=== PATIENT | male | born 1975 | race Caucasian/White ===

== ENCOUNTER → 2017-01-02 | Outpatient (CLI) | payer BC ==
[2017-01-02 10:32] LABS: Basophils # (A) 0.1 k/uL (0-0.2); Basophils % (A) 1 %; CHCM 34.9; Eosinophils # (A) 0.4 k/uL (0-0.7); Eosinophils % (A) 5 %; HCT 48.6 % (39.0-53.0); HDW 2.66; HGB 16.2 gm/dL (13.0-17.5); Luc # (Auto) 0.19; Luc % (Auto) 3; Lymphocytes % (A) 27 %; MCH 30.8 pg (25.0-35.0); MCHC 33.4 g/dL (31.0-37.0); MCV 92.3 fL (80.0-100.0); Mean Platelet Volume 6.7; Monocytes # (A) 0.4 k/uL (0-1.0); Monocytes % (A) 5 %; Neutrophils # (A) 4.4 k/uL (1.3-7.7); Neutrophils % (A) 60 %; RBC 5.27 m/uL (4.30-5.90); RDW 12.9 % (11.5-15.5); WBC 7.4 k/uL (3.8-10.6)
[2017-01-02 10:58] LABS: ALT 31 U/L (21-72); AST 20 U/L (17-59); Alkaline Phosphatase 25 U/L (38-126); Anion Gap 9 mmol/L; Blood Urea Nitrogen 19 mg/dL (9-20); C Reactive Protein 10.5 mg/L (<10.0); Calcium 9.6 mg/dL (8.4-10.2); Carbon Dioxide 24 mmol/L (22-30); Chloride 108 mmol/L (98-107); Cholesterol 225 mg/dL (<200); Glucose 91 mg/dL (74-99); HDL Cholesterol 33 mg/dL (40-60); Non-African American GFR(MDRD) >60 (>60 ml/min/1.73 sqM); Rheumatoid Factor, Qnt <9 IU/mL (<12); Sodium 141 mmol/L (137-145); Total Bilirubin 0.4 mg/dL (0.2-1.3); Total Protein 7.1 g/dL (6.3-8.2); Triglycerides 166 mg/dL (<150)
[2017-01-02 11:37] LABS: Erythrocyte Sedimentation Rate 5 mm/hr (0-15)
[2017-01-04 12:35] LABS: ANA w/Reflex to Titer NEGATIVE (NEGATIVE)
== END | disposition home or self-care (01) ==
LOC: LABWHC1 09:49
PROVIDERS: ATTEND Family Medicine
DX: Z00.00 Encounter for general adult medical examination without abnormal findings (principal); M25.50 Pain in unspecified joint; K29.70 Gastritis, unspecified, without bleeding; R53.83 Other fatigue
CPT/HCPCS: 36415; 80053; 80061; 82040; 84270; 84403; 84443; 85025; 85652; 86038; 86140; 86225; 86431; 86677

== ENCOUNTER 2017-01-11 07:59 | Day surgery (SDC) | payer BC ==
[2017-01-07 16:00] VITALS: BMI 29.3
[~2017-01-11 07:59] MED LIST: DEXAMETHASONE SOD PHOSPHATE 10 MG/ML 1 ML VIAL IV ONE; HEPARIN SODIUM,PORCINE 5,000 UNIT/ML 1 ML VIAL SQ ONE; ONDANSETRON 4 MG/2 ML VIAL IVP ONE; SCOPOLAMINE 1.5MG/72HR PATCH TRANSDERM ONE; ceFAZolin 2 GM in SODIUM CHLORIDE 0.9% 100 ML IVPB ONE
[2017-01-11] MEDS: LIDOCAINE 1% 20 ML VIAL (10MG/ML) FOR IV START INTRADERMA PRN ×2 (08:25→08:34)
[2017-01-11] MEDS: LACTATED RINGERS 1,000 ML IV SCH ×2 (08:30→08:31)
[2017-01-11] MEDS ORDERED: ROCURONIUM BROMIDE 10 MG/ML 10 ML VIAL IV ONE (10:09)
[2017-01-11] MEDS ORDERED: SUCCINYLCHOLINE CHLORIDE 100 MG/5 ML SYR IV ONE (10:09)
[2017-01-11] MEDS ORDERED: HYDROmorphone (PF) 1 MG/ML ONE (10:09)
[2017-01-11] MEDS ORDERED: GLYCOPYRROLATE 0.2 MG/ML 2 ML VIAL ONE (10:09)
[2017-01-11] MEDS ORDERED: LIDOCAINE 1% INJ 10MG/ML (20 ML MDV) ONE (10:09)
[2017-01-11] MEDS ORDERED: fentaNYL (PF) 50 MCG/ML 2 ML AMP ONE (10:09)
[2017-01-11] MEDS ORDERED: NEOSTIGMINE 1 MG/ML 10 ML VIAL ONE (10:09)
[2017-01-11] MEDS ORDERED: MIDAZOLAM 2 MG/2 ML VIAL ONE (10:09)
[2017-01-11] MEDS ORDERED: PROPOFOL 10 MG/ML 20 ML VIAL IV ONE (10:09)
[2017-01-11] MEDS ORDERED: BUPIVACAIN-EPI 0.25%-1:200,000 30 ML VIAL SQ ONE (10:39)
[2017-01-11] MEDS ORDERED: LACTATED RINGERS 1,000 ML IV ONE (12:01)
--- NOTE | 2017-01-11 12:17 | P.OP ---
Date of Procedure: 01/11/17 Preoperative Diagnosis: Bilateral inguinal hernia Postoperative Diagnosis: Bilateral direct inguinal hernia Procedure(s) Performed: Robot assisted laparoscoic b/l inguinal hernia repair with mesh Anesthesia: EDNA Surgeon: Karmen Fam Pathology: other Condition: stable Disposition: PACU Operative Findings: Direct bilateral inguinal hernias Description of Procedure: Informed consent was obtained patient and then The patient was brought to the operating room and placed in supine position. General anesthesia with endotracheal intubation was performed as per anesthesia team. A poole catheter was inserted under sterile aseptic precautions. Chlorhexidine was used to prep the skin followed by application of sterile drapes . He was placed in the lithotomy position. A timeout was performed to verify correct patient, correct procedure and correct side. Patient was confirmed to receive perioperative IV antibiotics, subcutaneous heparin 5000 units and bilateral SCDs were placed. The left upper quadrant point was identified and a stab incision was made. Veress needle was introduced and placement was confirmed with the help of the drop test. The abdomen was then insufflated to 15 mmHg. Once that was done 5 mm port was introduced into the left upper quadrant using the Optiview technique after which a 12 mm port was placed in the supraumbilical position and a 8 mm port in the right lower quadrant and then after that then a left sided 8 mm port was placed. The robot was then docked . The 30 degree up scope was introduced and the abdomen through the 12 mm port site. Cardiere grasper for the left hand and scissor in the right hand was introduced in the abdominal cavity after which the median umbilical fold was retracted laterally towards the opposite side a small incision was made at the junction of the umbilical fold and the peritoneum and carried all the way laterally thus creating a small plane in the preperitoneal space. This dissection was also carried across the midline othe opposite side creatin a large periotneal flap . Medially, the coopers ligament and pubic tubercles were identified. There was a direct hernia which was obscuring the Helio's ligament this was taken down with the help of blunt dissection inferior flap was developed so as to have a good view of the myopectineal orifice. The left side was inspected showing similar situation with fat forming a direct hernia and obscuring the Helio's ligament and running up to the anterior abdominal wall this was taken out with meticulous blunt dissection to create a good inferior flap for placement of the mesh. Once this was done a 10 x 15 Bard Pro bolt machine operator mesh meshes were sutured to the abdominal cavity and unrolled with midline overlap completely covering the hernia orifices. The large flap was then closed with the help of 20V lock suture. Small hole in it was closed with the help of 3-0 Vicryl. Small fetus of fat from the initial flap creation that had been taken down because it was in the way of the camera was removed along with the needles. Please note that the flap was close at a pressure of 8 mmHg insuring that the inferior edges of the meshes were not rolling up. At this time the procedure was completed. The robot was undocked. The 12 Mediport site was closed with the help of a Jasen Ibarra using 0 PDS. Sponge Count Was 4. The Remaining Ports Were Removed under Vision and Abdomen Desufflated. Patient She Will over a Competition. Patient Was Extubated without His Poole Catheter Was Removed and He Was Taken to Recovery Room in Stable Condition.
[2017-01-11 12:27] VITALS: TEMP 97.8
[2017-01-11] MEDS: HYDROmorphone 1 MG/ML 1 ML SYRINGE IVP PRN ×4 (12:30→13:04)
[2017-01-11 12:31] VITALS: RESP 18
[2017-01-11] MEDS ORDERED: traMADol 50 MG TAB PO ONE (14:31)
[2017-01-11 14:42] VITALS: BP 123/83; PULSE 64
== END 2017-01-11 15:10 | disposition home or self-care (01) ==
LOC: OR 07:59 → EDSTATUS 09:30 → OR 15:10
PROVIDERS: ATTEND Surgery
DX: K40.20 Bilateral inguinal hernia, without obstruction or gangrene, not specified as recurrent (principal); F17.290 Nicotine dependence, other tobacco product, uncomplicated; Z79.899 Other long term (current) drug therapy
CPT/HCPCS: 49650; S2900

== ENCOUNTER 2017-05-17 20:20 | Emergency (ER) | payer BC ==
[2017-05-17 20:27] VITALS: BP 142/91; RESP 18; TEMP 98.7
[2017-05-17] MEDS ORDERED: IPRATROPIUM-ALBUTEROL 3 ML NEB INHALATION STA (21:51)
[2017-05-17 22:08] VITALS: PULSE 83
--- NOTE | 2017-05-17 22:35 | ED ---
General Adult HPI - General Chief complaint: Shortness of Breath Stated complaint: SOB Time Seen by Provider: 05/17/17 21:35 Source: patient, family, RN notes reviewed Mode of arrival: ambulatory Limitations: no limitations - History of Present Illness Initial comments: 42-year-old male presenting for difficulty breathing. Patient has no known history of asthma. No past medical history. No chest pain. No calf tenderness. No risk factors for DVT. Breathing difficulty began approximately 4 PM. He hasn't denies fever. Patient does have history recent breakup with his girlfriend. He was how shopping for a new place to stay today. This began while he was out shopping. Patient does feel anxious. Does not take any medication. - Related Data Home Medications Medication Instructions Recorded Confirmed No Known Home Medications [No 05/17/17 05/17/17 Known Home Medications] Allergies Allergy/AdvReac Type Severity Reaction Status Date / Time No Known Allergies Allergy Verified 05/17/17 21:38 Review of Systems ROS Statement: Those systems with pertinent positive or pertinent negative responses have been documented in the HPI. ROS Other: All systems not noted in ROS Statement are negative. Past Medical History Additional Past Medical History / Comment(s): ketty inguinal hernia History of Any Multi-Drug Resistant Organisms: None Reported Past Surgical History: Hernia Repair Additional Past Surgical History / Comment(s): wisdom teeth,dental procedures Additional Past Anesthesia/Blood Transfusion Reaction / Comment(s): never has had general anesthesia,Jahovah Witness Past Psychological History: No Psychological Hx Reported Smoking Status: Current every day smoker Past Alcohol Use History: None Reported Past Drug Use History: Marijuana - Past Family History Mother Family Medical History: No Reported History Father History Unknown: Yes General Exam Limitations: no limitations General appearance: alert, anxious Head exam: Present: atraumatic, normocephalic Eye exam: Present: normal appearance, PERRL ENT exam: Present: normal exam, mucous membranes moist Neck exam: Present: normal inspection. Absent: tenderness, meningismus Respiratory exam: Present: normal lung sounds bilaterally, respiratory distress , other (Is between wheezing heard best over the trachea. This is consistent with forced inspiration. Lungs are clear bilaterally) Cardiovascular Exam: Present: regular rate, normal rhythm GI/Abdominal exam: Present: soft. Absent: distended, tenderness Rectal exam: Present: deferred Extremities exam: Present: normal inspection, full ROM. Absent: tenderness, calf tenderness Back exam: Present: normal inspection Neurological exam: Present: alert, oriented X3 Psychiatric exam: Present: anxious Skin exam: Present: warm, dry. Absent: cyanosis, diaphoretic Course Vital Signs 05/17/17 05/17/17 05/17/17 20:23 22:00 22:05 Temperature 98.7 F Pulse Rate 89 80 83 Respiratory 18 Rate Blood Pressure 142/91 O2 Sat by Pulse 99 Oximetry - Reevaluation(s) Reevaluation #1: 05/17/17 23:41 On reevaluation. Patient is feeling much better. Breathing difficulty has resolved. Medical Decision Making - Medical Decision Making Patient presents with difficulty breathing. Began suddenly at 4 PM on the patient was house shopping. He did have recent breakup with his girlfriend. No history of asthma, risk factors for DVT, no chest pain or concerning features. His pulmonary exam is clear, there is forced upper airway sounds. Patient does admit to being anxious. After a lengthy discussion patient's breathing has improved. He is given 1 DuoNeb while he rest in the emergency department I reevaluated the patient, no stridor, no wheezing, no respiratory distress. Patient does have a primary care physician he can follow up with. History and exam consistent with anxiety. Disposition Clinical Impression: Anxiety Disposition: HOME SELF-CARE Instructions: Acute Bronchitis (ED), Anxiety (ED) Referrals: None,Stated [Primary Care Provider] - 1-2 days Time of Disposition: 22:35
== END 2017-05-17 22:39 | disposition home or self-care (01) ==
LOC: EC 20:20
DX: F41.9 Anxiety disorder, unspecified (principal); F17.200 Nicotine dependence, unspecified, uncomplicated
CPT/HCPCS: 94640; 99283

== ENCOUNTER → 2017-11-03 | Outpatient (CLI) | payer BC ==
--- NOTE | 2017-11-03 16:45 | CT ---
EXAMINATION TYPE: CT abdomen pelvis w con DATE OF EXAM: 11/03/2017 COMPARISON: NONE HISTORY: Abnormal bowel habits for 2 to 3 days without bowel movement per patient. Abdominal pain not further specified per order CT DLP: 1342 mGycm, Automated Exposure Control for Dose Reduction was Utilized. CONTRAST: CT scan of the abdomen and pelvis is performed with oral and with IV Contrast, patient injected with 100 mL of Omnipaque 300. FINDINGS: LUNG BASES: No significant abnormality is appreciated. LIVER/GB: Contracted gallbladder is seen. PANCREAS: No significant abnormality is seen. SPLEEN: No significant abnormality is seen. ADRENALS: No significant abnormality is seen. KIDNEYS: No significant abnormality is seen. BOWEL: Oral contrast reaches level of splenic flexure. There is no suspicious small or large bowel di latation. Normal-appearing Contrast filled appendix extends inferiorly from cecum. There are few dive rticula in the left and sigmoid colon. There is no CT evidence for acute diverticulitis. No significa nt colonic fecal stasis. PROSTATE/SEMINAL VESICLES: Scattered pelvic phleboliths, left greater than right. LYMPH NODES: No greater than 1cm abdominal or pelvic lymph nodes are appreciated. OSSEOUS STRUCTURES: Incidental calcified disc T10-T11 level. OTHER: No significant additional abnormality is seen. IMPRESSION: No significant finding is seen to account for patient's clinical symptoms. No bowel obst ruction. No significant colonic fecal stasis.
== END | disposition home or self-care (01) ==
LOC: RADCTMAIN 16:11
PROVIDERS: ATTEND Family Medicine
DX: R10.9 Unspecified abdominal pain (principal)
CPT/HCPCS: 74177; Q9967

== ENCOUNTER 2017-12-16 02:59 | Emergency (ER) | payer BC ==
[2017-12-16 03:15] VITALS: RESP 18
[2017-12-16] MEDS ORDERED: SODIUM CHLORIDE 0.9% 1,000 ML IV STA (03:32)
[2017-12-16] MEDS ORDERED: ONDANSETRON 4 MG/2 ML VIAL IVP STA (03:32)
[2017-12-16] MEDS ORDERED: KETOROLAC 30 MG/ML 1 ML VIAL IVP STA (03:32)
[2017-12-16] MEDS ORDERED: MAG HYDROX/AL HYDROX/SIMETH 30 ML, HYOSCYAMINE ELIXIR 10 ML, CIMETIDINE HCL 300 MG, LID... PO STA ×4 (03:33)
--- NOTE | 2017-12-16 03:39 | ED ---
Abdominal Pain HPI - General Chief Complaint: Abdominal Pain Stated Complaint: Abd pain Time Seen by Provider: 12/16/17 03:24 Source: patient, RN notes reviewed Mode of arrival: ambulatory Limitations: no limitations - History of Present Illness Initial Comments: This is a 42-year-old male who presents to the emergency department with chief complaint of abdominal pain. Patient states that he has been experiencing on and off abdominal pain for the past couple of months. He states that he has underwent CT scans and scopes and they have been unable to figure out why he is experiencing this abdominal pain. Patient states that he experiences sharp pains along the upper portion of his abdomen with cramping centrally. He states that he is having nausea and vomiting. Denies constipation or diarrhea. Denies fevers or chills. Denies urinary symptoms such as dysuria or hematuria. - Related Data Previous Rx's Medication Instructions Recorded Omeprazole [PriLOSEC] 20 mg PO AC-BRKFST #14 cap 12/16/17 Allergies Allergy/AdvReac Type Severity Reaction Status Date / Time No Known Allergies Allergy Verified 12/16/17 03:15 Review of Systems ROS Statement: Those systems with pertinent positive or pertinent negative responses have been documented in the HPI. ROS Other: All systems not noted in ROS Statement are negative. Past Medical History Additional Past Medical History / Comment(s): ketty inguinal hernia, chronic abdominal pain; H pylori History of Any Multi-Drug Resistant Organisms: None Reported Past Surgical History: Hernia Repair Additional Past Surgical History / Comment(s): wisdom teeth,dental procedures, colonoscopy/endoscopy 2 weeks ago Additional Past Anesthesia/Blood Transfusion Reaction / Comment(s): never has had general anesthesia,Jahovah Witness Past Psychological History: No Psychological Hx Reported Smoking Status: Current every day smoker Past Alcohol Use History: None Reported Past Drug Use History: Marijuana - Past Family History Mother Family Medical History: No Reported History Father History Unknown: Yes General Exam - General Exam Comments Initial Comments: General: Awake and alert, well-developed; in no apparent distress. HEENT: Head atraumatic, normocephalic. Pupils are equal, round and reactive to light. Extraocular movements intact. Oropharynx moist without erythema or exudate. Neck: Supple. Normal ROM. Cardiovascular: Regular rate and rhythm. No murmurs, rubs or gallops. Chest symmetrical. Respiratory: Lungs clear to auscultation bilaterally. No wheezes, rales or rhonchi. Normal respiratory effort with no use of accessory muscles. Abdomen: Soft, non-distended. Mild generalized tenderness of upper abdomen. No rigidity, rebound or guarding. Normal bowel sounds in all 4 quadrants. Musculoskeletal: Normal ROM, no tenderness bilateral upper and lower extremities. Ambulating normally. Skin: [place], warm and dry without rashes or lesions. Neurological: Alert and oriented x3. CN II-XII grossly intact. Speech is fluent and answers are appropriate. No focal neuro deficits. Psychiatric: Normal mood and affect. No overt signs of depression or anxiety noted. Limitations: no limitations Course Vital Signs 12/16/17 03:11 Temperature 97.2 F L Pulse Rate 78 Respiratory 18 Rate Blood Pressure 129/99 O2 Sat by Pulse 99 Oximetry Medical Decision Making - Medical Decision Making this is a 42-year-old male who presented to the emergency department for evaluation of abdominal pain. Patient has been having intermittent abdominal pain for the past couple of months. He has undergone a computed tomography scan which I did review. This was done on November 03 and revealed no acute abnormalities within the abdomen or pelvis. Patient presents today complaining of upper abdominal sharp pains with periumbilical cramping. Patient was given a liter bolus, pain medication and a GI cocktail. CBC and CMP were unremarkable. There was blood noted in the urine however patient's history and physical examination do not fit suspicion for kidney stone. He states that he is feeling much improved after receiving medication. vital signs are stable and he is in no acute distress. Patient will be given a prescription for Prilosec. He will be given a referral to gastroenterology. Patient is in agreement with plan and voices understanding. All questions were answered. He will be discharged home at this time. - Lab Data Result diagrams: 12/16/17 03:30 12/16/17 03:30 Lab Results 12/16/17 12/16/17 12/16/17 Range/Units 03:30 03:30 04:00 WBC 7.6 (3.8-10.6) k/uL RBC 5.22 (4.30-5.90) m/uL Hgb 16.0 (13.0-17.5) gm/dL Hct 46.2 (39.0-53.0) % MCV 88.6 (80.0-100.0) fL MCH 30.6 (25.0-35.0) pg MCHC 34.5 (31.0-37.0) g/dL RDW 12.3 (11.5-15.5) % Plt Count 275 (150-450) k/uL Neutrophils % 69 % Lymphocytes % 17 % Monocytes % 7 % Eosinophils % 6 % Basophils % 1 % Neutrophils # 5.2 (1.3-7.7) k/uL Lymphocytes # 1.3 (1.0-4.8) k/uL Monocytes # 0.5 (0-1.0) k/uL Eosinophils # 0.4 (0-0.7) k/uL Basophils # 0.1 (0-0.2) k/uL Sodium 143 (137-145) mmol/L Potassium 4.5 (3.5-5.1) mmol/L Chloride 106 (98-107) mmol/L Carbon Dioxide 25 (22-30) mmol/L Anion Gap 12 mmol/L BUN 16 (9-20) mg/dL Creatinine 1.20 (0.66-1.25) mg/dL Est GFR (CKD-EPI)AfAm 87 (>60 ml/min/1.73 sqM) Est GFR (CKD-EPI)NonAf 75 (>60 ml/min/1.73 sqM) Glucose 103 H (74-99) mg/dL Calcium 9.8 (8.4-10.2) mg/dL Total Bilirubin 0.3 (0.2-1.3) mg/dL AST 19 (17-59) U/L ALT 27 (21-72) U/L Alkaline Phosphatase 30 L (38-126) U/L Total Protein 7.1 (6.3-8.2) g/dL Albumin 4.5 (3.5-5.0) g/dL Amylase 61 (30-110) U/L Lipase 96 (23-300) U/L Urine Color Yellow Urine Appearance Clear (Clear) Urine pH 6.0 (5.0-8.0) Ur Specific [place] 1.024 (1.001-1.035) Urine Protein Trace H (Negative) Urine Glucose (UA) Negative (Negative) Urine Ketones Negative (Negative) Urine Blood Moderate H (Negative) Urine Nitrite Negative (Negative) Urine Bilirubin Negative (Negative) Urine Urobilinogen 2.0 (<2.0) mg/dL Ur Leukocyte Esterase Negative (Negative) Urine RBC 20 H (0-5) /hpf Urine WBC 1 (0-5) /hpf Urine Mucus Rare H (None) /hpf Disposition Clinical Impression: Abdominal pain Disposition: HOME SELF-CARE Condition: Good Instructions: Abdominal Pain (ED) Additional Instructions: Please follow-up with Dr. Charles, gastroenterology. Please take medications as prescribed. Please follow up with primary care provider within 1-2 days. Return to emergency department if symptoms should worsen or any concerns arise. Prescriptions: Omeprazole [PriLOSEC] 20 mg PO AC-BRKFST #14 cap Referrals: Juan J Molina MD [Primary Care Provider] - 1-2 days [place] Charles MD [STAFF PHYSICIAN] - 1-2 days Time of Disposition: 04:30
[2017-12-16 03:55] LABS: Basophils # (A) 0.1 k/uL (0-0.2); Basophils % (A) 1 %; Eosinophils # (A) 0.4 k/uL (0-0.7); Eosinophils % (A) 6 %; HCT 46.2 % (39.0-53.0); Lymphocytes # (A) 1.3 k/uL (1.0-4.8); Lymphocytes % (A) 17 %; MCH 30.6 pg (25.0-35.0); MCHC 34.5 g/dL (31.0-37.0); MCV 88.6 fL (80.0-100.0); Mean Platelet Volume 7.1; Monocytes # (A) 0.5 k/uL (0-1.0); Monocytes % (A) 7 %; Neutrophils # (A) 5.2 k/uL (1.3-7.7); Neutrophils % (A) 69 %; Platelet Count 275 k/uL (150-450); RBC 5.22 m/uL (4.30-5.90); RDW 12.3 % (11.5-15.5); WBC 7.6 k/uL (3.8-10.6)
[2017-12-16 04:13] LABS: Albumin 4.5 g/dL (3.5-5.0); Calcium 9.8 mg/dL (8.4-10.2); Potassium 4.5 mmol/L (3.5-5.1); Total Bilirubin 0.3 mg/dL (0.2-1.3); Total Protein 7.1 g/dL (6.3-8.2)
[2017-12-16 04:16] LABS: Appearance,Urine Clear (Clear); Bilirubin,Urine Negative (Negative); Blood,Urine Moderate (Negative); Color,Urine Yellow; Glucose,Urine (UA) Negative (Negative); Ketones,Urine Negative (Negative); Leukocyte Esterase,Urine Negative (Negative); Mucus,Urine Rare /hpf; Nitrite,Urine Negative (Negative); Protein,Urine Trace (Negative); RBC,Urine 20 /hpf (0-5); Specific Gravity,Urine 1.024 (1.001-1.035); WBC,Urine 1 /hpf (0-5)
[2017-12-16 04:53] VITALS: BP 110/69; PULSE 63; TEMP 97.9
== END 2017-12-16 04:53 | disposition home or self-care (01) ==
LOC: EC 02:59
DX: R10.10 Upper abdominal pain, unspecified (principal); R11.2 Nausea with vomiting, unspecified; R10.33 Periumbilical pain; F17.200 Nicotine dependence, unspecified, uncomplicated
CPT/HCPCS: 36415; 80053; 82150; 83690; 85025; 81001; 87086; 99284; 96374; 96375; 96361; J2405; J1885

== ENCOUNTER 2017-12-18 20:25 | Inpatient (IN) | payer BC ==
[2017-12-18] MEDS ORDERED: ONDANSETRON 4 MG/2 ML VIAL IVP STA (21:20)
[2017-12-18] MEDS ORDERED: SODIUM CHLORIDE 0.9% 1,000 ML IV STA (21:20)
[2017-12-18] MEDS ORDERED: PANTOPRAZOLE 40 MG/10 ML VIAL IVP STA (21:20)
[2017-12-18] MEDS ORDERED: MORPHINE SULFATE/PF 10MG/10ML VL IV STA (21:20)
[2017-12-18] MEDS ORDERED: KETOROLAC 30 MG/ML 1 ML VIAL IVP STA (21:20)
--- NOTE | 2017-12-18 21:23 | ED ---
Abdominal Pain HPI - General Source: patient, RN notes reviewed, old records reviewed Mode of arrival: ambulatory Limitations: no limitations <Sirisha Cote - Last Filed: 12/19/17 01:52> <Victoriano Natarajan - Last Filed: 12/21/17 08:34> - General Chief Complaint: Abdominal Pain Stated Complaint: Vomiting Time Seen by Provider: 12/18/17 20:52 - History of Present Illness Initial Comments: This is a 42-year-old male presents emergency department today she complained of severe abdominal pain. He states he has had some episodes of vomiting associated with it. He reports that the pain seems to be episodic in nature. He isn't having the symptoms for quite some time. He was seen in emergency department 4 days ago for similar symptoms. Patient had multiple CAT scans work so. He sees a GI specialist on . Patient is tender, and reports fever or chills. He reports his pain is a 3 out of 10 at this time, earlier it was a 10/10. Patient ports that is a burning sensation in his abdomen. He states that he's had multiple workups with nobody ever wants to do images on his gallbladder. He is here for further evaluation is concerned with issues with his gallbladder. (Sirisha Cote) - Related Data Home Medications Medication Instructions Recorded Confirmed No Known Home Medications [No 12/19/17 12/19/17 Known Home Medications] Allergies Allergy/AdvReac Type Severity Reaction Status Date / Time No Known Allergies Allergy Verified 12/19/17 07:58 Review of Systems ROS Other: All systems not noted in ROS Statement are negative. <Sirisha Cote - Last Filed: 12/19/17 01:52> ROS Other: All systems not noted in ROS Statement are negative. <Victoriano Natarajan - Last Filed: 12/21/17 08:34> ROS Statement: Those systems with pertinent positive or pertinent negative responses have been documented in the HPI. Past Medical History Additional Past Medical History / Comment(s): ketty inguinal hernia, chronic abdominal pain; H pylori History of Any Multi-Drug Resistant Organisms: None Reported Past Surgical History: Hernia Repair Additional Past Surgical History / Comment(s): wisdom teeth,dental procedures, colonoscopy/endoscopy 2 weeks ago Additional Past Anesthesia/Blood Transfusion Reaction / Comment(s): never has had general anesthesia,Jahovah Witness Past Psychological History: No Psychological Hx Reported Smoking Status: Current every day smoker Past Alcohol Use History: None Reported Past Drug Use History: Marijuana - Past Family History Mother Family Medical History: No Reported History Father History Unknown: Yes <Sirisha Cote - Last Filed: 12/19/17 01:52> General Exam Limitations: no limitations General appearance: alert, in no apparent distress Head exam: Present: atraumatic, normocephalic, normal inspection Eye exam: Present: normal appearance, PERRL, EOMI. Absent: scleral icterus, conjunctival injection, periorbital swelling ENT exam: Present: normal exam, mucous membranes moist Neck exam: Present: normal inspection. Absent: tenderness, meningismus, lymphadenopathy Respiratory exam: Present: normal lung sounds bilaterally. Absent: respiratory distress, wheezes, rales, rhonchi, stridor Cardiovascular Exam: Present: regular rate, normal rhythm, normal heart sounds. Absent: systolic murmur, diastolic murmur, rubs, gallop, clicks GI/Abdominal exam: Present: soft, tenderness (Mid-level epigastric tenderness and rUQ tenderness), normal bowel sounds. Absent: distended, guarding, rebound , rigid Extremities exam: Present: normal inspection, full ROM, normal capillary refill. Absent: tenderness, pedal edema, joint swelling, calf tenderness Back exam: Present: normal inspection Neurological exam: Present: alert, oriented X3, CN II-XII intact Psychiatric exam: Present: normal affect, normal mood Skin exam: Present: warm, dry, intact, normal color. Absent: rash <Sirisha Cote - Last Filed: 12/19/17 01:52> <Victoriano Natarajan - Last Filed: 12/21/17 08:34> - General Exam Comments Initial Comments: This patient is a 42-year-old male. Doesn't appear to be in any acute distress at this time. (Sirisha Cote) Vital Signs 12/18/17 12/18/17 12/19/17 20:33 22:39 01:03 Temperature 99.0 F 98.4 F Pulse Rate 83 68 78 Pulse Rate [ Right Supine Pulse Oximetery ] Respiratory 20 16 16 Rate Blood Pressure 140/84 138/70 149/82 Blood Pressure [Right Arm Supine] O2 Sat by Pulse 98 97 98 Oximetry 12/19/17 01:12 Temperature 97.6 F Pulse Rate Pulse Rate [ 55 L Right Supine Pulse Oximetery ] Respiratory 18 Rate Blood Pressure Blood Pressure 120/78 [Right Arm Supine] O2 Sat by Pulse 97 Oximetry Medical Decision Making - Lab Data Result diagrams: 12/18/17 21:09 12/18/17 21:09 - Radiology Data Radiology results: report reviewed <Sirisha Cote - Last Filed: 12/19/17 01:52> - Lab Data Result diagrams: 12/20/17 06:53 12/20/17 06:53 <Victoriano Natarajan - Last Filed: 12/21/17 08:34> - Medical Decision Making This patient is a 42-year-old male with a history of vomiting and abdominal pain this been intermittent for the past few months. Progressively worse over the past day. He was seen in the emergency department 4 days ago. Had normal workup at that time. Patient's concerned about his gallbladder. At this time his liver enzymes are markedly elevated from lab work 2 days ago.He sees 167 ALT is 86 respectively. Normal total bilirubin. I did completed and right upper quadrant ultrasound. Evidence of biliary sludge. Mildly thickened gallbladder wall. No evidence appear equal a systolic fluid. Patient did have a positive Swenson sign on exam. At this time patient's please redo have some reasons for why he is having this pain. Patient continues to be quite tender. Discussed admission for observation consult to surgery. Patient agrees. Patient will be admitted at this time. Remaining nothing by mouth. IV pain medicine completed. (Sirisha Cote) I saw this patient in conjunction with the physician offset press assistant. I performed independent history and physical exam. Agree with case management. (Victoriano Natarajan) - Lab Data Lab Results 12/18/17 12/18/17 12/18/17 Range/Units 21:09 21:09 22:31 WBC 7.5 (3.8-10.6) k/uL RBC 5.05 (4.30-5.90) m/uL Hgb 15.1 (13.0-17.5) gm/dL Hct 44.0 (39.0-53.0) % MCV 87.2 (80.0-100.0) fL MCH 29.9 (25.0-35.0) pg MCHC 34.3 (31.0-37.0) g/dL RDW 12.2 (11.5-15.5) % Plt Count 252 (150-450) k/uL Neutrophils % 71 % Lymphocytes % 18 % Monocytes % 6 % Eosinophils % 3 % Basophils % 1 % Neutrophils # 5.4 (1.3-7.7) k/uL Lymphocytes # 1.4 (1.0-4.8) k/uL Monocytes # 0.4 (0-1.0) k/uL Eosinophils # 0.3 (0-0.7) k/uL Basophils # 0.1 (0-0.2) k/uL Sodium 142 (137-145) mmol/L Potassium 4.0 (3.5-5.1) mmol/L Chloride 104 (98-107) mmol/L Carbon Dioxide 24 (22-30) mmol/L Anion Gap 14 mmol/L BUN 14 (9-20) mg/dL Creatinine 1.00 (0.66-1.25) mg/dL Est GFR (CKD-EPI)AfAm >90 (>60 ml/min/1.73 sqM) Est GFR (CKD-EPI)NonAf >90 (>60 ml/min/1.73 sqM) Glucose 99 (74-99) mg/dL Calcium 9.5 (8.4-10.2) mg/dL Total Bilirubin 0.6 (0.2-1.3) mg/dL AST 167 H (17-59) U/L ALT 86 H (21-72) U/L Alkaline Phosphatase 43 (38-126) U/L Total Protein 7.1 (6.3-8.2) g/dL Albumin 4.3 (3.5-5.0) g/dL Amylase 70 (30-110) U/L Lipase 127 (23-300) U/L Urine Color Yellow Urine Appearance Clear (Clear) Urine pH 6.5 (5.0-8.0) Ur Specific [place] 1.023 (1.001-1.035) Urine Protein Trace H (Negative) Urine Glucose (UA) Negative (Negative) Urine Ketones Negative (Negative) Urine Blood Small H (Negative) Urine Nitrite Negative (Negative) Urine Bilirubin Negative (Negative) Urine Urobilinogen 8.0 (<2.0) mg/dL Ur Leukocyte Esterase Negative (Negative) Urine RBC 20 H (0-5) /hpf Urine WBC 1 (0-5) /hpf Urine Mucus Rare H (None) /hpf - Radiology Data 's right upper quadrant ultrasound shows gallstones, sludge in mild gallbladder wall thickening without evidence of persitolic fluid. Positive Swenson sign. Findings are nonspecific. High clinical suspicion for acute cholecystitis considering treatment HIDA scan for further evaluation. Most of the right kidney slightly atrophic. Correlates to recent computed tomography scan. Mild wall thickening measuring 5 mm. (Sirisha Cote) Disposition Time of Disposition: 23:59 <Sirisha Cote - Last Filed: 12/19/17 01:52> <Victoriano Natarajan - Last Filed: 12/21/17 08:34> Clinical Impression: Cholelithiases, Elevated transaminase level, Abdominal pain Disposition: ADMITTED IP TO THIS HOSP Condition: Stable
[2017-12-18 21:42] LABS: Basophils # (A) 0.1 k/uL (0-0.2); Basophils % (A) 1 %; Eosinophils # (A) 0.3 k/uL (0-0.7); Eosinophils % (A) 3 %; HGB 15.1 gm/dL (13.0-17.5); Lymphocytes # (A) 1.4 k/uL (1.0-4.8); Lymphocytes % (A) 18 %; MCH 29.9 pg (25.0-35.0); MCHC 34.3 g/dL (31.0-37.0); MCV 87.2 fL (80.0-100.0); Monocytes # (A) 0.4 k/uL (0-1.0); Monocytes % (A) 6 %; Neutrophils # (A) 5.4 k/uL (1.3-7.7); Neutrophils % (A) 71 %; Platelet Count 252 k/uL (150-450); RBC 5.05 m/uL (4.30-5.90); RDW 12.2 % (11.5-15.5); WBC 7.5 k/uL (3.8-10.6)
[2017-12-18 22:01] LABS: ALT 86 U/L (21-72); AST 167 U/L (17-59); Albumin 4.3 g/dL (3.5-5.0); Alkaline Phosphatase 43 U/L (38-126); Amylase 70 U/L (30-110); Anion Gap 14 mmol/L; Blood Urea Nitrogen 14 mg/dL (9-20); Calcium 9.5 mg/dL (8.4-10.2); Carbon Dioxide 24 mmol/L (22-30); Chloride 104 mmol/L (98-107); Glucose 99 mg/dL (74-99); Lipase 127 U/L (23-300); Sodium 142 mmol/L (137-145); Total Bilirubin 0.6 mg/dL (0.2-1.3); Total Protein 7.1 g/dL (6.3-8.2)
--- NOTE | 2017-12-18 23:03 | US ---
EXAM: US Abdomen Limited, Right Upper Quadrant CLINICAL HISTORY: Pain TECHNIQUE: Real-time ultrasound of the right upper quadrant with image documentation. COMPARISON: CT abdomen and pelvis dated 11/03/2017 FINDINGS: Liver: Liver measures up to 14.8 cm. Increased echogenicity which likely represents hepatic steatosis. No intrahepatic bile duct dilation. Gallbladder: Gallstones, sludge and mild wall thickening measuring 5 mm. Positive sonographic Swenson's sign. No pericholecystic fluid identified. Common bile duct: Common bile duct is within normal limits measuring less than 5 mm. No stones. No dilation. Pancreas: Unremarkable as visualized. Right kidney: Right kidney measures up to 8.4 cm. No stones, masses or hydronephrosis. IMPRESSION: 1. Gallstones, sludge and mild gallbladder wall thickening without evidence of pericholecystic fluid. Positive sonographic Swenson's sign. Findings are nonspecific. If there is high clinical suspicion for acute cholecystitis, consider nuclear medicine HIDA scan for further evaluation. 2. The right kidney is slightly atrophic. This correlates with recent CT scan.
[2017-12-18 23:14] LABS: Appearance,Urine Clear (Clear); Bilirubin,Urine Negative (Negative); Blood,Urine Small (Negative); Color,Urine Yellow; Glucose,Urine (UA) Negative (Negative); Ketones,Urine Negative (Negative); Leukocyte Esterase,Urine Negative (Negative); Mucus,Urine Rare /hpf; Nitrite,Urine Negative (Negative); PH, Urine 6.5 (5.0-8.0); Protein,Urine Trace (Negative); RBC,Urine 20 /hpf (0-5); Specific Gravity,Urine 1.023 (1.001-1.035); WBC,Urine 1 /hpf (0-5)
[2017-12-18] MEDS ORDERED: ACETAMINOPHEN TAB 325 MG TAB PO PRN (23:59)
[2017-12-18] MEDS ORDERED: LORazepam 2 MG/ML INJ IV PRN (23:59)
[2017-12-18] MEDS ORDERED: NALOXONE 0.4 MG/ML 1 ML VIAL IV PRN (23:59)
[2017-12-18] MEDS ORDERED: DOCUSATE 100 MG CAP PO PRN (23:59)
[2017-12-18] MEDS ORDERED: IBUPROFEN 400 MG TAB PO PRN (23:59)
[2017-12-19] MEDS: SODIUM CHLORIDE 0.9% 1,000 ML IV SCH (00:13)
[2017-12-19] MEDS ORDERED: PIPERACILLIN-TAZOBACTAM 3.375 GM in DEXTROSE/WATER 1 50ML.BAG IVPB SCH (09:00)
[2017-12-19 09:11] LABS: Basophils % (A) 1 %; Eosinophils # (A) 0.2 k/uL (0-0.7); Eosinophils % (A) 5 %; HCT 40.4 % (39.0-53.0); HGB 14.3 gm/dL (13.0-17.5); Lymphocytes % (A) 22 %; MCH 31.2 pg (25.0-35.0); MCHC 35.3 g/dL (31.0-37.0); MCV 88.3 fL (80.0-100.0); Mean Platelet Volume 6.8; Monocytes # (A) 0.4 k/uL (0-1.0); Monocytes % (A) 9 %; Neutrophils # (A) 2.6 k/uL (1.3-7.7); Neutrophils % (A) 60 %; Platelet Count 220 k/uL (150-450); RBC 4.58 m/uL (4.30-5.90); RDW 12.2 % (11.5-15.5); WBC 4.3 k/uL (3.8-10.6)
[2017-12-19 09:18] LABS: ALT 441 U/L (21-72); AST 606 U/L (17-59); Albumin 3.4 g/dL (3.5-5.0); Alkaline Phosphatase 48 U/L (38-126); Anion Gap 7 mmol/L; Blood Urea Nitrogen 17 mg/dL (9-20); Calcium 8.5 mg/dL (8.4-10.2); Carbon Dioxide 28 mmol/L (22-30); Chloride 108 mmol/L (98-107); Glucose 90 mg/dL (74-99); Potassium 4.6 mmol/L (3.5-5.1); Sodium 143 mmol/L (137-145); Total Bilirubin 1.7 mg/dL (0.2-1.3); Total Protein 5.8 g/dL (6.3-8.2)
--- NOTE | 2017-12-19 09:29 | P.GSHP ---
History of Present Illness H&P Date: 12/19/17 Chief Complaint: Cholecystitis Patient came to the ER yesterday evening with complaints of abdominal pain. This pain first began about 2-3 weeks ago. He has had multiple episodes since then. He was actually in the ER on more than one occasion. Pain is in the right midabdomen. It is episodic. Seems to be aggravated by a variety different foods. Denies any change in his skin color although he says his urine has been darker in color. No history of liver disease. We'll see if any alcohol use. Yesterday's transaminases were somewhat elevated. Today they are increased further. Ultrasound shows gallstones with a thickened wall. - Review of Systems Comment: The patient denies any acute changes in vision or hearing, no dysphagia or odynophagia, no chest pain or shortness of breath, no dysuria or hematuria, no headache, no runny nose, no rectal bleeding or melena, no unexplained weight loss Past Medical History Additional Past Medical History / Comment(s): ketty inguinal hernia, chronic abdominal pain; H pylori History of Any Multi-Drug Resistant Organisms: None Reported Past Surgical History: Hernia Repair Additional Past Surgical History / Comment(s): wisdom teeth,dental procedures, colonoscopy/endoscopy 2 weeks ago Additional Past Anesthesia/Blood Transfusion Reaction / Comment(s): never has had general anesthesia,Jahovah Witness Past Psychological History: No Psychological Hx Reported Smoking Status: Current every day smoker Past Alcohol Use History: None Reported Past Drug Use History: Marijuana - Past Family History Mother Family Medical History: No Reported History Father History Unknown: Yes Medications and Allergies Home Medications Medication Instructions Recorded Confirmed Type No Known Home Medications [No 12/19/17 12/19/17 History Known Home Medications] Allergies Allergy/AdvReac Type Severity Reaction Status Date / Time No Known Allergies Allergy Verified 12/19/17 07:58 Surgical - Exam Vital Signs Temp Pulse Resp BP Pulse Ox 99.0 F 83 20 140/84 98 12/18/17 20:33 12/18/17 20:33 12/18/17 20:33 12/18/17 20:33 12/18/17 20:33 Physical exam: General: Well-developed, well-nourished HEENT: Normocephalic, sclerae nonicteric Abdomen: Mild right upper quadrant tenderness, nondistended Extremities: No edema Neuro: Alert and oriented Results - Labs 12/18/17 21:09 12/19/17 08:55 Abnormal Lab Results - Last 24 Hours (Table) 12/18/17 12/18/17 12/19/17 Range/Units 21:09 22:31 08:55 Chloride 108 H (98-107) mmol/L Total Bilirubin 1.7 H (0.2-1.3) mg/dL AST 167 H 606 H (17-59) U/L ALT 86 H 441 H (21-72) U/L Total Protein 5.8 L (6.3-8.2) g/dL Albumin 3.4 L (3.5-5.0) g/dL Urine Protein Trace H (Negative) Urine Blood Small H (Negative) Urine RBC 20 H (0-5) /hpf Urine Mucus Rare H (None) /hpf Diabetes panel 12/18/17 12/19/17 Range/Units 21:09 08:55 Sodium 142 143 (137-145) mmol/L Potassium 4.0 4.6 (3.5-5.1) mmol/L Chloride 104 108 H (98-107) mmol/L Carbon Dioxide 24 28 (22-30) mmol/L BUN 14 17 (9-20) mg/dL Creatinine 1.00 1.16 (0.66-1.25) mg/dL Glucose 99 90 (74-99) mg/dL Calcium 9.5 8.5 (8.4-10.2) mg/dL AST 167 H 606 H (17-59) U/L ALT 86 H 441 H (21-72) U/L Alkaline Phosphatase 43 48 (38-126) U/L Total Protein 7.1 5.8 L (6.3-8.2) g/dL Albumin 4.3 3.4 L (3.5-5.0) g/dL Calcium panel 12/18/17 12/19/17 Range/Units 21:09 08:55 Calcium 9.5 8.5 (8.4-10.2) mg/dL Albumin 4.3 3.4 L (3.5-5.0) g/dL Pituitary panel 12/18/17 12/19/17 Range/Units 21:09 08:55 Sodium 142 143 (137-145) mmol/L Potassium 4.0 4.6 (3.5-5.1) mmol/L Chloride 104 108 H (98-107) mmol/L Carbon Dioxide 24 28 (22-30) mmol/L BUN 14 17 (9-20) mg/dL Creatinine 1.00 1.16 (0.66-1.25) mg/dL Glucose 99 90 (74-99) mg/dL Calcium 9.5 8.5 (8.4-10.2) mg/dL Adrenal panel 12/18/17 12/19/17 Range/Units 21:09 08:55 Sodium 142 143 (137-145) mmol/L Potassium 4.0 4.6 (3.5-5.1) mmol/L Chloride 104 108 H (98-107) mmol/L Carbon Dioxide 24 28 (22-30) mmol/L BUN 14 17 (9-20) mg/dL Creatinine 1.00 1.16 (0.66-1.25) mg/dL Glucose 99 90 (74-99) mg/dL Calcium 9.5 8.5 (8.4-10.2) mg/dL Total Bilirubin 0.6 1.7 H (0.2-1.3) mg/dL AST 167 H 606 H (17-59) U/L ALT 86 H 441 H (21-72) U/L Alkaline Phosphatase 43 48 (38-126) U/L Total Protein 7.1 5.8 L (6.3-8.2) g/dL Albumin 4.3 3.4 L (3.5-5.0) g/dL Assessment and Plan (1) Choledocholithiasis with acute cholecystitis Narrative/Plan: Begin IV antibiotics. Consult GI for possible ERCP. Repeat labs tomorrow. Eventually will require cholecystectomy either later during this hospitalization or possibly as an outpatient. Current Visit: Yes Status: Acute Code(s): K80.42 - CALCULUS OF BILE DUCT W ACUTE CHOLECYSTITIS W/O OBSTRUCTION SNOMED Code(s): 26123595
[2017-12-19] MEDS: HEPARIN SODIUM,PORCINE 5,000 UNIT/ML 1 ML VIAL SQ SCH ×2 (12:41→16:00)
--- NOTE | 2017-12-19 13:28 | CONS ---
CONSULTATION REQUESTING PHYSICIAN: Dr. Mancia. REASON FOR CONSULTATION: Abdominal pain, elevated LFTs. HISTORY OF PRESENT ILLNESS: The patient is a 42-year-old pleasant white male with no significant past medical history, came to the emergency room complaining of epigastric right upper quadrant abdominal pain on and off for the last 2 months duration. Came to the ER 2 days ago and was discharged home yesterday. The pain got more intense and came to the emergency room and he had ultrasound of the abdomen done that showed evidence of gallstones and subsequently admitted to the hospital for further evaluation. This morning, he was noted to have elevated LFTs and elevated total bilirubin of 1.9; and hence we are consulted for possible ERCP. The patient states that he is feeling much better this morning. Still has some epigastric discomfort. No nausea, vomiting. He noted urine turning dark in color. PAST MEDICAL HISTORY: Chronic abdominal pain. PAST SURGICAL HISTORY: Bilateral inguinal hernia repair. MEDICATIONS: Medications at home: None. ALLERGIES: No known drug allergies. SOCIAL HISTORY: Chronic smoker. No alcohol use. FAMILY HISTORY: Mother and father . REVIEW OF SYSTEMS: CARDIOPULMONARY: No chest pain, shortness of breath. GENITOURINARY: No dysuria or hematuria. MUSCULOSKELETAL: Unremarkable. SKIN: Unremarkable. ENDOCRINE: Unremarkable. PSYCHIATRIC: Unremarkable. NEUROLOGY: Unremarkable. ENT/VISION: Unremarkable. CONSTITUTIONAL: No recent weight loss. No fever, chills, night sweats. PHYSICAL EXAMINATION: Blood pressure is 140/84, pulse 82, temperature 99. HEENT: Examination unremarkable. Conjunctivae pink. Sclerae anicteric. Oral cavity no lesions. NECK: No jugular venous distention or lymph node enlargement. Chest clear to auscultation. epigastric area. Bowel sounds are positive. No organomegaly. EXTREMITIES: No pedal edema. SKIN: No rashes. NEUROLOGIC: Alert and oriented x3. No focal deficits. LAB: From yesterday: WBC 7.5, hemoglobin 15.1, platelets are normal. AST was 167, ALT was 86, T bilirubin and alkaline phosphatase are normal yesterday. Today AST is up to 606, ALT is 441, T bilirubin is 1.7, and alkaline phosphatase is 48. Amylase and lipase are normal. CBC is normal. Ultrasound showed evidence of gallstones, but no biliary ductal dilation. IMPRESSION: The patient presents to the hospital with epigastric right upper quadrant abdominal pain. with worsening symptoms for the last 2 days and now noted to have elevated LFTs and mild jaundice. Ultrasound did show gallstones, but no biliary ductal dilation. The possibility of CBD stone needs to be considered. RECOMMENDATIONS: 1. Clear liquid diet. 2. Repeat LFTs in the morning and if they continue to increase will consider an ERCP tomorrow. I discussed with the patient the risks, benefits and complications of procedure and he is agreeable to it. Thank you for this consultation. MMODL / IJN: [id number] /
[2017-12-19] MEDS: ONDANSETRON 4 MG/2 ML VIAL IVP PRN (17:52)
[2017-12-19] MEDS: MORPHINE SULFATE/PF 10MG/10ML VL IV PRN (17:57)
[2017-12-19] MEDS: PIPERACILLIN-TAZOBACTAM 3.375 GM in DEXTROSE/WATER 1 50ML.BAG IVPB SCH (20:40)
[2017-12-20] MEDS: SODIUM CHLORIDE 0.9% 1,000 ML IV SCH ×5 (01:02→21:32)
[2017-12-20] MEDS: PIPERACILLIN-TAZOBACTAM 3.375 GM in DEXTROSE/WATER 1 50ML.BAG IVPB SCH ×3 (04:49→21:29)
[2017-12-20] MEDS: HEPARIN SODIUM,PORCINE 5,000 UNIT/ML 1 ML VIAL SQ SCH ×4 (04:49→21:29)
--- NOTE | 2017-12-20 05:34 | CONS ---
CONSULTATION DATE OF SERVICE: 12/19/17 REASON FOR CONSULTATION: Medical management requested by Dr. Mancia. CONSULTATION: This is a 42-year-old patient of Dr. Molina. The only other history of H pylori to few times. For 2 weeks patient has been having abdominal pain not in a specific area, sometimes upper abdomen and sometimes lower abdomen and initially was intermittent for 2 weeks, then started becoming more constant. The patient presented also has nausea, vomiting, some fever, perspiration, feeling dizzy. The patient is found to have gallstones and admitted for the same. REVIEW OF SYSTEMS: Constitutional: Tired. Febrile, weak and tired. HEENT none. Respiratory none. Cardiovascular none. Gastrointestinal as above. none. Musculoskeletal none. Dermatologic, hematologic, lymphatics none. Psychiatry none. Neurological none. PAST MEDICAL HISTORY: Of H pylori, bilateral inguinal hernia repair. PAST SURGICAL HISTORY: Hernia repair, wisdom teeth repair, endoscopy [address] Love. SOCIAL HISTORY: The patient has smoked for about 26 years. Does marijuana once or twice a month. 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 Lives alone. FAMILY HISTORY: Reviewed. Noncontributory to presentation. HOME MEDICATIONS: None. ALLERGIES: None. PHYSICAL EXAMINATION: Afebrile. Pulse 82, respiratory rate 16, blood pressure 109/88, pulse ox 93% on room appearance: Average built, sitting up anxious-appearing. Eyes: Pupils equal. Conjunctivae normal. HEENT external appearance of nose and ears normal. Oral cavity normal. JVD not raised. Mass not palpable. Respiratory effort lungs fair entry. Cardiovascular 1st and 2nd sounds normal. No edema. Abdomen right upper quadrant tenderness. No guarding, or rigidity. Liver and spleen not palpable. Lymphatics: No lymph nodes palpable in neck or axillae. PSYCHIATRY: Alert and oriented times three. Mood and affect normal. Neurological: Pupils equal. Cranial nerves grossly intact. Power and sensation grossly intact. INVESTIGATIONS: White count 7.5, hemoglobin 15.1, potassium 4.0. The patient's AST went up from 167 to 606 and ALT went from 86-441 and patient's bilirubin went from 0.6 to 1.7. Ultrasound gallbladder shows gallstones, sludge, some thickening of the wall, right kidney atrophic. ASSESSMENT: 1. Acute cholecystitis. 2. Gallstones with evidence of obstructive hepatitis. 3. Right atrophic kidney. 4. Chronic nicotine dependence, patient is a cigarette smoker. 5. Recreational marijuana use. PLAN: The patient is on IV Zosyn, IV fluids, subcu heparin. We will give the patient a nicotine patch. The patient will first get an ERCP and go from there. Care was discussed with the patient. Questions were answered. Thank you Dr. Mancia. DEBBIE / ANDREI: [id number] /
[2017-12-20 07:49] LABS: Albumin 3.2 g/dL (3.5-5.0); Calcium 8.8 mg/dL (8.4-10.2); Potassium 4.7 mmol/L (3.5-5.1); Total Bilirubin 2.1 mg/dL (0.2-1.3); Total Protein 5.7 g/dL (6.3-8.2)
[2017-12-20 08:19] LABS: Basophils % (A) 1 %; Eosinophils # (A) 0.3 k/uL (0-0.7); Eosinophils % (A) 7 %; HCT 41.3 % (39.0-53.0); HGB 14.6 gm/dL (13.0-17.5); Lymphocytes # (A) 1.1 k/uL (1.0-4.8); Lymphocytes % (A) 21 %; MCH 31.5 pg (25.0-35.0); MCHC 35.2 g/dL (31.0-37.0); MCV 89.3 fL (80.0-100.0); Monocytes # (A) 0.3 k/uL (0-1.0); Monocytes % (A) 5 %; Neutrophils # (A) 3.3 k/uL (1.3-7.7); Neutrophils % (A) 65 %; Platelet Count 240 k/uL (150-450); RBC 4.62 m/uL (4.30-5.90); RDW 12.1 % (11.5-15.5); WBC 5.1 k/uL (3.8-10.6)
[2017-12-20] MEDS: MORPHINE SULFATE/PF 10MG/10ML VL IV PRN (08:31)
--- NOTE | 2017-12-20 08:51 | P.PN ---
<Gardenia Barraganjocelyn Naranjo - Last Filed: 12/20/17 08:42> Subjective Progress Note Date: 12/20/17 42-year-old male seen and examined. Patient is scheduled this morning for an ERCP per GI. Patient continues to report having the same type pain that he had when he came in points to the midepigastric area states it radiates to the right upper abdomen labs reviewed the total bili up to 2.1. transaminases the AST this morning is down to 282 was 601 ALT 471 alk phos 50 . Patient states he's anxious to have his gallbladder taken out is anxious to return back to work Objective - Vital Signs Vital signs: Vital Signs Temp 98.6 F 12/20/17 06:54 Pulse 57 L 12/20/17 06:54 Resp 16 12/20/17 06:54 BP 94/65 12/20/17 06:54 Pulse Ox 98 12/20/17 06:54 Intake & Output 12/19/17 12/20/17 12/20/17 18:59 06:59 18:59 Intake Total 425 700 Balance 425 700 Intake: Intake, IV Titration 425 350 Amount Piperacillin-Tazobactam 3 25 100 .375 gm In Dextrose/Water 1 50ml.bag @ 12.5 mls/hr IVPB Q8H ZORAN Rx#: [id number] Sodium Chloride 0.9% 1, 400 250 000 ml @ 100 mls/hr IV . Q10H ZORAN Rx#:[id number] Oral 350 Other: Voiding Method Toilet # Voids 1 - Exam Exam Abdomen right upper quadrant tenderness not distended bowel tones present states no nausea no vomiting urinating no difficulty - Labs CBC & Chem 7: 12/20/17 06:53 12/20/17 06:53 Labs: Abnormal Lab Results - Last 24 Hours (Table) 12/19/17 12/20/17 Range/Units 08:55 06:53 Chloride 108 H 108 H (98-107) mmol/L Total Bilirubin 1.7 H 2.1 H (0.2-1.3) mg/dL AST 606 H 282 H (17-59) U/L ALT 441 H 471 H (21-72) U/L Total Protein 5.8 L 5.7 L (6.3-8.2) g/dL Albumin 3.4 L 3.2 L (3.5-5.0) g/dL Assessment and Plan Assessment: Impression Present on admission right upper quadrant pain likely due to Choledocholithiasis with acute cholecystitis Ultrasound abdomen show gallstones sludge gallbladder wall thickening Elevated transaminases Plan Await the findings from the ERCP scheduled today Eventually will need a cholecystectomy the timing will to be determined Pain control IV fluid for hydration Will follow with you The above impression and plan of care have been discussed and directed by signing physician. Jeannette Barragan nurse practitioner acting as scribe for signing physician. <Lake Mancia - Last Filed: 12/20/17 17:01> Objective - Vital Signs Vital signs: Vital Signs Temp 97.8 F 12/20/17 14:00 Pulse 44 L 12/20/17 15:45 Resp 16 12/20/17 14:00 BP 139/86 12/20/17 15:45 Pulse Ox 100 12/20/17 14:00 Intake & Output 12/19/17 12/20/17 12/20/17 18:59 06:59 18:59 Intake Total 936 966 2837 Balance 834 084 2638 Intake: IV 1300 Sodium Chloride 0.9% 1, 1000 000 ml @ 125 mls/hr IV . Q8H ZORAN Rx#:[id number] Intake, IV Titration 425 350 Amount Piperacillin-Tazobactam 3 25 100 .375 gm In Dextrose/Water 1 50ml.bag @ 12.5 mls/hr IVPB Q8H ZORAN Rx#: [id number] Sodium Chloride 0.9% 1, 400 250 000 ml @ 125 mls/hr IV . Q8H ZORAN Rx#:[id number] Oral 350 Other: Voiding Method Toilet Toilet # Voids 1 - Labs CBC & Chem 7: 12/20/17 06:53 12/20/17 06:53 Labs: Abnormal Lab Results - Last 24 Hours (Table) 12/20/17 Range/Units 06:53 Chloride 108 H (98-107) mmol/L Total Bilirubin 2.1 H (0.2-1.3) mg/dL AST 282 H (17-59) U/L ALT 471 H (21-72) U/L Total Protein 5.7 L (6.3-8.2) g/dL Albumin 3.2 L (3.5-5.0) g/dL Assessment and Plan Assessment: As above. Patient's ERCP today was unsuccessful. The common bile duct was unable to be accessed. The patient's labs are slightly more elevated today. We 'll plan repeat labs tomorrow. The patient's symptoms have improved. If these labs are trending downward would consider discharge with outpatient labs and outpatient elective cholecystectomy if they return to normal. (1) Choledocholithiasis with acute cholecystitis Current Visit: Yes Status: Acute Code(s): K80.42 - CALCULUS OF BILE DUCT W ACUTE CHOLECYSTITIS W/O OBSTRUCTION SNOMED Code(s): 43031069
[2017-12-20] MEDS: FAMOTIDINE 20 MG/2 ML VIAL IV SCH ×2 (10:16→21:30)
[2017-12-20] MEDS: INDOMETHACIN 50MG SUPPOSITORY RECTAL ONE ×2 (12:04→12:22)
[2017-12-20] MEDS ORDERED: LIDOCAINE 1% INJ 10MG/ML (20 ML MDV) ONE (12:54)
[2017-12-20] MEDS ORDERED: PROPOFOL 10 MG/ML 20 ML VIAL IV ONE (12:54)
[2017-12-20] MEDS ORDERED: KETAMINE 10 MG/ML 20 ML VIAL ONE (12:54)
[2017-12-20] MEDS ORDERED: MIDAZOLAM 2 MG/2 ML VIAL ONE (12:54)
[2017-12-20] MEDS ORDERED: diphenhydrAMINE 50 MG/ML 1 ML VIAL ONE (12:54)
[2017-12-20] MEDS ORDERED: fentaNYL (PF) 50 MCG/ML 2 ML AMP ONE (12:54)
[2017-12-20] MEDS ORDERED: GLUCAGON 1 MG/ML VIAL ONE (12:54)
[2017-12-20] MEDS ORDERED: GLYCOPYRROLATE 0.2 MG/ML 2 ML VIAL ONE (12:54)
[2017-12-20] MEDS ORDERED: IV FLUID CONTINUATION 1,000 ML IV ONE (12:58)
[2017-12-20] MEDS ORDERED: IOHEXOL 350 MG/ML 50ML BOTTLE MISCELLANE ONE (13:28)
--- NOTE | 2017-12-20 13:30 | P.PCN ---
Date of Procedure: 12/20/17 Procedure(s) Performed: Brief history: Patient is a 42 year-old pleasant white male admitted to hospital with intermittent episodes of epigastric and right upper quadrant abdominal pain on-and-off for the last 1 month duration. He has scheduled for an ERCP as part of evaluation of abdominal pain and elevated serum transaminases an ultrasound showing multiple gallstones but no biliary ductal dilation. His serum transaminases had slightly improved but bilirubin went up to 2.1 today. Because for a clinical suspicion for CBD stones he is scheduled for an ERCP today. Procedure performed: ERCP Preoperative diagnoses:Elevated LFTs/elevated bilirubin/abdominal pain rule out CBD stones IV sedation per anesthesia: Procedure: After informed consent was obtained from the patient and after the risks benefits and complications including bleeding perforation and pancreatitis explained in detail the patient was brought into the endoscopy unit. The patient was placed in prone position and IV conscious sedation was administered by anesthesia under continuous monitoring. The Olympus side-viewing duodenoscope was then inserted into the mouth and esophagus intubated without any difficulty. The scope was gradually advanced into the stomach and duodenum. The major papilla was identified without any difficulty.initial cannulation resultedoccasional pancreatic duct that appeared normal. Subsequently I was not able to cannulate the common bile duct and hence I used a guidewire technique and was not successful. At this time the catheter was removed and an autotome with a guidewire technique was used. Despite multiple attempts I was not able to cannulate the common bile duct and hence the procedure was terminated. Impression: 1. Normal-appearing pancreatic duct 2. Unsuccessful cannulation of the common bile duct. Recommendations: The findings of this examination were discussed with the patient.At this time will discuss with Dr. Mancia for possibleMRCP versus intra- cholangiogram to see for any CBD stone.
--- NOTE | 2017-12-20 14:59 | FL ---
EXAMINATION TYPE: FL ERCP biliary duct only DATE OF EXAM: 12/20/2017 COMPARISON: Ultrasound gallbladder 12/18/2017 HISTORY: Pancreatitis Fluoroscopy support supplied to the referring clinician. See dictated report from gastroenterology, 1 intraoperative image documents the procedure. 1 minute 16 seconds fluoroscopy time supplied to the referring clinician.
[2017-12-21] MEDS: PIPERACILLIN-TAZOBACTAM 3.375 GM in DEXTROSE/WATER 1 50ML.BAG IVPB SCH ×3 (04:55→19:54)
--- NOTE | 2017-12-21 05:24 | PN ---
PROGRESS NOTE DATE OF SURGERY: 12/20/2017 PRESENTING COMPLAINT: Abdominal pain. INTERVAL HISTORY: The patient presented with right upper quadrant pain, found to have acute cholecystitis and gallstones. Also has right atrophic kidney. The patient did undergo ERCP today but cannulation of CBD could not be done. The patient is still having some abdominal pain, resting. REVIEW OF SYSTEMS: Review of systems done for constitutional, cardiovascular, GI, pulmonary; relevant findings as above. CURRENT MEDICATIONS: Current medications are reviewed that include IV Zosyn. PHYSICAL EXAMINATION: On examination, temperature 97.4, pulse 45, respiratory 18, blood pressure 123/81, pulse ox 100% on room air. GENERAL APPEARANCE: Lying in bed, tired appearing. EYES: Pupils equal. Conjunctivae normal. HENT: External appearance of nose and ears normal. Oral cavity normal. NECK: JVD not raised. Mass not palpable. RESPIRATORY: Effort . LUNGS: Fair entry. CARDIOVASCULAR: First and second sounds normal. No edema. ABDOMEN: Right upper quadrant tenderness. No guarding or rigidity. Liver and spleen not palpable. PSYCHIATRY: Alert and oriented x3. Mood and affect normal. INVESTIGATIONS: White count 5.1, potassium 4.7, AST 282, ALT 471. ASSESSMENT: 1. Acute cholecystitis. 2. Gallstones with evidence of obstructive hepatitis with some improvement in LFTs with unsuccessful cannulation of the common bile duct per ERCP. 3. Right atrophic kidney. 4. Chronic nicotine dependence. Patient is a cigarette smoker. 5. Recreational marijuana use. PLAN: Continue with IV antibiotics, Zosyn. Await further input from Surgery. The patient's bilirubin has gone up to 2.1. Repeat labs tomorrow. MMODL / IJN: [id number] /
[2017-12-21 08:22] LABS: ALT 400 U/L (21-72); AST 207 U/L (17-59); Albumin 3.3 g/dL (3.5-5.0); Alkaline Phosphatase 60 U/L (38-126); Anion Gap 11 mmol/L; Blood Urea Nitrogen 12 mg/dL (9-20); Calcium 8.7 mg/dL (8.4-10.2); Carbon Dioxide 21 mmol/L (22-30); Chloride 110 mmol/L (98-107); Glucose 94 mg/dL (74-99); Potassium 4.6 mmol/L (3.5-5.1); Sodium 142 mmol/L (137-145); Total Bilirubin 3.5 mg/dL (0.2-1.3); Total Protein 5.8 g/dL (6.3-8.2)
[2017-12-21] MEDS: KETOROLAC 30 MG/ML 1 ML VIAL IVP PRN ×2 (08:32→13:40)
[2017-12-21] MEDS: FAMOTIDINE 20 MG/2 ML VIAL IV SCH ×2 (08:35→19:54)
[2017-12-21] MEDS: HEPARIN SODIUM,PORCINE 5,000 UNIT/ML 1 ML VIAL SQ SCH ×2 (08:37→18:15)
--- NOTE | 2017-12-21 09:10 | P.PN ---
Subjective Progress Note Date: 12/21/17 Principal diagnosis: Elevated liver enzymes abdominal pain Status post attempted ERCP yesterday for elevated liver enzymes. Patient reports mid epigastric pain. Afebrile. LFTs increased total bilirubin today is 3.5. Objective - Vital Signs Vital signs: Vital Signs Temp 98.1 F 12/21/17 07:52 Pulse 60 12/21/17 07:52 Resp 20 12/21/17 07:58 BP 115/72 12/21/17 07:52 Pulse Ox 97 12/21/17 07:52 Intake & Output 12/20/17 12/21/17 12/21/17 18:59 06:59 18:59 Intake Total 1300 Balance 1300 Intake: IV 1300 Sodium Chloride 0.9% 1, 1000 000 ml @ 125 mls/hr IV . Q8H [facility] Rx#:[id number] Other: Voiding Method Toilet Toilet Toilet # Voids 2 - Exam General appearance: The patient is alert, oriented, in no acute distress. HET: Head is normocephalic and atraumatic. Pupils are equal and reactive. Oropharynx is clear without lesions. Sclerae dull. Neck: Supple without lymphadenopathy. Trachea midline. Heart: S1 S2. Regular rate and rhythm. Lungs: No crackles or wheezes are heard. Abdomen: Soft, midepigastric tenderness, nondistended with bowel sounds. No peritoneal signs. No palpable organomegaly or masses. Extremities: Normal skin color and turgor. No cyanosis, rash, ulceration, clubbing, or edema. Radial and pedal pulses are 2/4 bilaterally. Neurological: No focal deficits. Strength and sensation are grossly intact. - Labs CBC & Chem 7: 12/20/17 06:53 12/21/17 07:26 Labs: Abnormal Lab Results - Last 24 Hours (Table) 12/21/17 Range/Units 07:26 Chloride 110 H (98-107) mmol/L Carbon Dioxide 21 L (22-30) mmol/L Total Bilirubin 3.5 H (0.2-1.3) mg/dL AST 207 H (17-59) U/L ALT 400 H (21-72) U/L Total Protein 5.8 L (6.3-8.2) g/dL Albumin 3.3 L (3.5-5.0) g/dL Assessment and Plan (1) Elevated liver enzymes Narrative/Plan: 32-year-old male admitted with midepigastric pain elevated liver enzymes with cholelithiasis suspect choledocholithiasis status post attempted ERCP unable to cannulate into CBD. Worsening liver function tests this morning with persistent abdominal epigastric pain. Current Visit: Yes Status: Acute Code(s): R74.8 - ABNORMAL LEVELS OF OTHER SERUM ENZYMES SNOMED Code(s): 222891031 (2) Abdominal pain Current Visit: Yes Status: Acute Code(s): R10.9 - UNSPECIFIED ABDOMINAL PAIN SNOMED Code(s): 92488601 Plan: Recommendations: 1. MRCP. Further recognitions forthcoming after review of MRI. Plan of care was updated with general surgeon Dr. Mancia. We'll continue follow closely with you. Assessment and plan a care discussed with Dr. Adams
[2017-12-21] MEDS: SODIUM CHLORIDE 0.9% 1,000 ML IV SCH ×2 (10:08→13:41)
--- NOTE | 2017-12-21 11:59 | P.PN ---
<Jeannette Barragan - Last Filed: 12/21/17 11:53> Subjective Progress Note Date: 12/21/17 42-year-old seen at bedside. Patient continues to report having mid epigastric discomfort. States pain medication effective for pain control. The LFTs have increased today. Total bilirubin is up to 3.5 this morning Patient status post attempted ERCP done yesterday by GI service reports no nausea vomiting Objective - Vital Signs Vital signs: Vital Signs Temp 98.1 F 12/21/17 07:52 Pulse 60 12/21/17 07:52 Resp 20 12/21/17 07:58 BP 115/72 12/21/17 07:52 Pulse Ox 97 12/21/17 07:52 Intake & Output 12/20/17 12/21/17 12/21/17 18:59 06:59 18:59 Intake Total 1300 Balance 1300 Intake: IV 1300 Sodium Chloride 0.9% 1, 1000 000 ml @ 125 mls/hr IV . Q8H [facility] Rx#:[id number] Other: Voiding Method Toilet Toilet Toilet # Voids 2 - Exam Exam 42-year-old male alert oriented 3 resting in bed states that he takes the pain medication helps decrease the discomfort in his abdomen Lungs adequate air movement bilaterally no shortness of breath noted Heart S1-S2 audible regular Abdomen mid epigastric radiates to right upper quadrant tenderness not distended bowel tones present states no nausea no vomiting urinating no difficulty Extremities no edema - Labs CBC & Chem 7: 12/20/17 06:53 12/21/17 07:26 Labs: Abnormal Lab Results - Last 24 Hours (Table) 12/21/17 Range/Units 07:26 Chloride 110 H (98-107) mmol/L Carbon Dioxide 21 L (22-30) mmol/L Total Bilirubin 3.5 H (0.2-1.3) mg/dL AST 207 H (17-59) U/L ALT 400 H (21-72) U/L Total Protein 5.8 L (6.3-8.2) g/dL Albumin 3.3 L (3.5-5.0) g/dL Assessment and Plan Assessment: Impression Present on admission midepigastric radiating to right upper quadrant pain likely due to Choledocholithiasis with acute cholecystitis Ultrasound abdomen show gallstones sludge gallbladder wall thickening Elevated transaminases with elevated total bilirubin Status post attempted ERCP done on December 20 Plan MRCP per recommendations of GI service If symptoms improve and labs are trending downward would consider discharge with outpatient labs and outpatient elective cholecystectomy if they return to normal Repeat labs in the morning Pain control IV fluid for hydration Will follow with you The above impression and plan of care have been discussed and directed by signing physician. Jeannette Barragan nurse practitioner acting as scribe for signing physician. <[place] - Last Filed: 12/21/17 20:20> Objective - Vital Signs Vital signs: Vital Signs Temp 98.5 F 12/21/17 14:43 Pulse 53 L 12/21/17 14:43 Resp 16 12/21/17 14:43 BP 131/83 12/21/17 14:43 Pulse Ox 100 12/21/17 14:43 Intake & Output 12/21/17 12/21/17 12/22/17 06:59 18:59 06:59 Intake Total 1000 Balance 1000 Intake: IV 1000 Sodium Chloride 0.9% 1, 1000 000 ml @ 125 mls/hr IV . Q8H [facility] Rx#:[id number] Other: Voiding Method Toilet Toilet Urinal # Voids 2 2 - Labs CBC & Chem 7: 12/20/17 06:53 12/21/17 07:26 Labs: Abnormal Lab Results - Last 24 Hours (Table) 12/21/17 Range/Units 07:26 Chloride 110 H (98-107) mmol/L Carbon Dioxide 21 L (22-30) mmol/L Total Bilirubin 3.5 H (0.2-1.3) mg/dL AST 207 H (17-59) U/L ALT 400 H (21-72) U/L Total Protein 5.8 L (6.3-8.2) g/dL Albumin 3.3 L (3.5-5.0) g/dL Assessment and Plan Assessment: As above. Patient's labs this morning had increased further. MRCP was ordered. Dictation on the MRCP states that the gallbladder and biliary tree are normal. We'll repeat labs tomorrow. We'll have this MRI reviewed for second opinion. Further decision regarding reattempted ERCP pending tomorrows findings. Clinical scenario was discussed in detail with the patient explaining the variety of options available to us at this time. (1) Choledocholithiasis with acute cholecystitis Current Visit: Yes Status: Acute Code(s): K80.42 - CALCULUS OF BILE DUCT W ACUTE CHOLECYSTITIS W/O OBSTRUCTION SNOMED Code(s): 11503772
--- NOTE | 2017-12-21 14:31 | PN ---
PROGRESS NOTE DATE OF SERVICE: 12/21/2017 PRESENT COMPLAINT: Abdominal pain. INTERVAL HISTORY: Patient presents with acute cholecystitis with gallstones. Underwent ERCP yesterday with unsuccessful cannulation of the CBD. MRCP has been ordered today, abdominal pain persists. Some nausea is present. REVIEW OF SYSTEMS: Done for constitutional, cardiovascular, GI, pulmonary; relevant findings as above. CURRENT MEDICATIONS: Reviewed that include IV Zosyn and IV fluids. PHYSICAL EXAMINATION: Afebrile, pulse 50, respiration 20, blood pressure 115/72, pulse ox 97% on room air. GENERAL APPEARANCE: Lying in bed, awake. EYES: Pupils equal, conjunctivae normal. HEENT: External nose and ears normal, oral cavity normal. Neck JVD not raised. Mass not palpable. RESPIRATORY: Effort normal. LUNGS: Fair entry. CARDIOVASCULAR: First and second sound are normal, no edema. ABDOMEN: Soft, nontender. Right upper quadrant tenderness. No guarding or rigidity. Liver and spleen not palpable. PSYCHIATRY: Alert and oriented x3. Mood and affect normal. INVESTIGATIONS: Potassium 4.6, bilirubin 3.5, AST 207, ALT 404. ASSESSMENT: 1. Acute cholecystitis. 2. Gallstones. 3. Evidence of obstructive hepatitis with some improvement in LFTs. The bilirubin has gone up without successful cannulation of the common bile duct per ERCP. 4. Right atrophic kidney. 5. Chronic nicotine dependence, patient is a cigarette smoker. 6. Recreational marijuana use. PLAN: Continue with antibiotics. Await MRCP and follow from there. MMODL / IJN: [id number] /
[2017-12-21] MEDS: SODIUM BICARBONATE TAB 650 MG TAB PO SCH ×3 (15:27→22:18)
--- NOTE | 2017-12-21 19:59 | MR ---
EXAMINATION TYPE: MR MRCP DATE OF EXAM: 12/21/2017 COMPARISON: NONE HISTORY: Elevated liver enzymes, cholelithiasis Standard multiplanar, multisequence MRI departmental protocol Multiplanar multiecho imaging of the abdomen was performed with no contrast. FINDINGS: Liver shows no focal defect. Pancreas appears normal. Spleen appears normal. Kidneys show n o hydronephrosis. I see no dilated ducts. There is no evidence of gallstones. Common bile duct measur es 5 mm. IMPRESSION: Negative MRCP exam. No dilated ducts. No gallbladder abnormality identified.
[2017-12-22] MEDS: SODIUM CHLORIDE 0.9% 1,000 ML IV SCH ×3 (00:32→19:07)
[2017-12-22] MEDS: HEPARIN SODIUM,PORCINE 5,000 UNIT/ML 1 ML VIAL SQ SCH ×4 (00:36→22:20)
[2017-12-22] MEDS: PIPERACILLIN-TAZOBACTAM 3.375 GM in DEXTROSE/WATER 1 50ML.BAG IVPB SCH ×3 (03:58→22:20)
--- NOTE | 2017-12-22 07:16 | P.PN ---
Subjective Progress Note Date: 12/22/17 Principal diagnosis: Choledocholithiasis Patient slept well last night. He says his urine is coremaker floor in color today. Still no pain. Morning labs are pending. MRCP was reviewed with the patient. We'll have these films reread this morning by different radiologists. Objective - Vital Signs Vital signs: Vital Signs Temp 98.0 F 12/21/17 20:00 Pulse 60 12/22/17 00:37 Resp 16 12/22/17 00:37 BP 120/76 12/22/17 00:37 Pulse Ox 98 12/22/17 00:37 Intake & Output 12/21/17 12/22/17 12/22/17 18:59 06:59 18:59 Intake Total 1000 500 Balance 1000 500 Intake: IV 1000 Sodium Chloride 0.9% 1, 1000 000 ml @ 125 mls/hr IV . Q8H [facility] Rx#:[id number] Intake, IV Titration 500 Amount Sodium Chloride 0.9% 1, 500 000 ml @ 125 mls/hr IV . Q8H [facility] Rx#:[id number] Other: Voiding Method Toilet Toilet Urinal Urinal # Voids 2 1 - Exam Abdomen: Soft, nondistended, nontender - Labs CBC & Chem 7: 12/20/17 06:53 12/21/17 07:26 Labs: Abnormal Lab Results - Last 24 Hours (Table) 12/21/17 Range/Units 07:26 Chloride 110 H (98-107) mmol/L Carbon Dioxide 21 L (22-30) mmol/L Total Bilirubin 3.5 H (0.2-1.3) mg/dL AST 207 H (17-59) U/L ALT 400 H (21-72) U/L Total Protein 5.8 L (6.3-8.2) g/dL Albumin 3.3 L (3.5-5.0) g/dL Assessment and Plan (1) Choledocholithiasis with acute cholecystitis Narrative/Plan: Check morning labs. Review MRCP with second radiologist. Patient prefers to stay and have his gallbladder surgery performed during this hospitalization if it appears based on the labs in the MRCP that he has passed a stone. We'll try to facilitate those arrangements as I will be leaving town today. Current Visit: Yes Status: Acute Code(s): K80.42 - CALCULUS OF BILE DUCT W ACUTE CHOLECYSTITIS W/O OBSTRUCTION SNOMED Code(s): 39448481
[2017-12-22 07:53] LABS: ALT 323 U/L (21-72); AST 110 U/L (17-59); Albumin 3.4 g/dL (3.5-5.0); Alkaline Phosphatase 68 U/L (38-126); Anion Gap 12 mmol/L; Blood Urea Nitrogen 13 mg/dL (9-20); Calcium 8.7 mg/dL (8.4-10.2); Carbon Dioxide 20 mmol/L (22-30); Chloride 111 mmol/L (98-107); Glucose 88 mg/dL (74-99); Potassium 4.1 mmol/L (3.5-5.1); Sodium 143 mmol/L (137-145); Total Bilirubin 2.5 mg/dL (0.2-1.3); Total Protein 5.9 g/dL (6.3-8.2)
[2017-12-22] MEDS: FAMOTIDINE 20 MG/2 ML VIAL IV SCH ×2 (08:44→19:51)
[2017-12-22] MEDS: SODIUM BICARBONATE TAB 650 MG TAB PO SCH ×3 (08:45→22:20)
--- NOTE | 2017-12-22 08:56 | P.PN ---
Subjective Progress Note Date: 12/22/17 Principal diagnosis: Elevated liver enzymes abdominal pain Status post attempted ERCP for elevated liver enzymes. Abdominal pain resolved. LFTs improved. MRCP no evidence of choledocholithiasis. Objective - Vital Signs Vital signs: Vital Signs Temp 98.0 F 12/21/17 20:00 Pulse 60 12/22/17 00:37 Resp 16 12/22/17 00:37 BP 120/76 12/22/17 00:37 Pulse Ox 98 12/22/17 00:37 Intake & Output 12/21/17 12/22/17 12/22/17 18:59 06:59 18:59 Intake Total 1000 500 Balance 1000 500 Intake: IV 1000 Sodium Chloride 0.9% 1, 1000 000 ml @ 125 mls/hr IV . Q8H [facility] Rx#:[id number] Intake, IV Titration 500 Amount Sodium Chloride 0.9% 1, 500 000 ml @ 125 mls/hr IV . Q8H [facility] Rx#:[id number] Other: Voiding Method Toilet Toilet Urinal Urinal # Voids 2 1 - Exam General appearance: The patient is alert, oriented, in no acute distress. HET: Head is normocephalic and atraumatic. Pupils are equal and reactive. Oropharynx is clear without lesions. Sclerae are anicteric Neck: Supple without lymphadenopathy. Trachea midline. Heart: S1 S2. Regular rate and rhythm. Lungs: No crackles or wheezes are heard. Abdomen: Soft, nontender, nondistended with bowel sounds. No peritoneal signs. No palpable organomegaly or masses. Extremities: Normal skin color and turgor. No cyanosis, rash, ulceration, clubbing, or edema. Radial and pedal pulses are 2/4 bilaterally. Neurological: No focal deficits. Strength and sensation are grossly intact. - Labs CBC & Chem 7: 12/20/17 06:53 12/22/17 07:02 Labs: Abnormal Lab Results - Last 24 Hours (Table) 12/22/17 Range/Units 07:02 Chloride 111 H (98-107) mmol/L Carbon Dioxide 20 L (22-30) mmol/L Total Bilirubin 2.5 H (0.2-1.3) mg/dL AST 110 H (17-59) U/L ALT 323 H (21-72) U/L Total Protein 5.9 L (6.3-8.2) g/dL Albumin 3.4 L (3.5-5.0) g/dL Assessment and Plan (1) Elevated liver enzymes Narrative/Plan: 32-year-old male admitted with midepigastric pain elevated liver enzymes with cholelithiasis suspected passage of choledocholithiasis status post attempted ERCP unable to cannulate into CBD. Improved liver function tests this morning with resolution of abdominal epigastric pain. MRCP reported no evidence of choledocholithiasis. Current Visit: Yes Status: Acute Code(s): R74.8 - ABNORMAL LEVELS OF OTHER SERUM ENZYMES SNOMED Code(s): 324990885 (2) Abdominal pain Current Visit: Yes Status: Acute Code(s): R10.9 - UNSPECIFIED ABDOMINAL PAIN SNOMED Code(s): 49031607 Plan: 1. Cholecystectomy per general surgery recommendations. No further workup from a GI standpoint. We'll follow as needed. Assessment and plan of care discussed with Dr. Adams
[2017-12-22] MEDS ORDERED: MORPHINE SULFATE/PF 10MG/10ML VL IV PRN (14:03)
--- NOTE | 2017-12-22 18:11 | PN ---
PROGRESS NOTE DATE OF SERVICE: 12/22/2017 PRESENTING COMPLAINT: Abdominal pain. INTERVAL HISTORY: This patient presented with acute cholecystitis and gallstones. ERCP was unsuccessful in cannulation of CBD. MRCP showing gallstones. Patient's abdominal pain is better, but at this point the patient is awaiting cholecystectomy. No nausea or vomiting. No fever. REVIEW OF SYSTEMS: Done for constitutional, cardiovascular, GI, pulmonary; relevant findings as above. CURRENT MEDICATIONS: Reviewed; they include IV Zosyn. PHYSICAL EXAMINATION: Temperature 97, pulse 83, respiration 16, blood pressure 152/86, pulse ox 98% on room air. GENERAL APPEARANCE: Sitting up. More comfortable. EYES: Pupils equal. Conjunctivae normal. HEENT: External appearance of nose and ears normal. Oral cavity normal. NECK: JVD not raised. Mass not palpable. RESPIRATORY: Effort normal. LUNGS: Fair air entry. CARDIOVASCULAR: First and second sounds normal. No edema. ABDOMEN: Soft, nontender. Liver and spleen not palpable. PSYCHIATRY: Alert and oriented x3. Mood and affect normal. INVESTIGATIONS: MRCP showed multiple gallstones, small, in the gallbladder; common bile duct normal. Bicarb 20, bilirubin 2.5, AST 110, ALT 323. ASSESSMENT: 1. Acute cholecystitis. 2. Multiple gallstones initially causing obstructive hepatitis picture, probably with some passage of stone. 3. Right atrophic kidney. 4. Chronic nicotine dependence. Patient is a cigarette smoker. 5. Recreational marijuana use. 6. Hyperbilirubinemia due to obstructive hepatitis. 7. Hypoalbuminemia, likely an acute phase reactant. 8. Metabolic acidosis with decreased bicarb. PLAN: Sodium bicarb was added yesterday. Continue with IV antibiotics. Await cholecystectomy. MMODL / IJN: [id number] /
[2017-12-23] MEDS: SODIUM CHLORIDE 0.9% 1,000 ML IV SCH ×3 (02:20→16:44)
[2017-12-23] MEDS: PIPERACILLIN-TAZOBACTAM 3.375 GM in DEXTROSE/WATER 1 50ML.BAG IVPB SCH ×3 (06:16→19:26)
[2017-12-23] MEDS: FAMOTIDINE 20 MG/2 ML VIAL IV SCH ×2 (07:45→20:10)
[2017-12-23] MEDS: HEPARIN SODIUM,PORCINE 5,000 UNIT/ML 1 ML VIAL SQ SCH ×3 (07:45→20:18)
[2017-12-23] MEDS: SODIUM BICARBONATE TAB 650 MG TAB PO SCH ×3 (07:59→22:51)
[2017-12-23 08:34] LABS: ALT 293 U/L (21-72); AST 88 U/L (17-59); Albumin 3.9 g/dL (3.5-5.0); Alkaline Phosphatase 72 U/L (38-126); Anion Gap 11 mmol/L; Blood Urea Nitrogen 12 mg/dL (9-20); Calcium 9.3 mg/dL (8.4-10.2); Carbon Dioxide 23 mmol/L (22-30); Chloride 109 mmol/L (98-107); Glucose 96 mg/dL (74-99); Sodium 143 mmol/L (137-145); Total Bilirubin 1.3 mg/dL (0.2-1.3); Total Protein 6.4 g/dL (6.3-8.2)
[2017-12-23 08:37] LABS: Potassium 4.7 mmol/L (3.5-5.1)
[2017-12-23] MEDS ORDERED: IV FLUID CONTINUATION 1,000 ML IV ONE ×2 (11:10)
--- NOTE | 2017-12-23 11:13 | P.PN ---
Progress Note - Text Progress Note Date: 12/23/17 The patient's liver function tests are improved. Dr. Mancia is asked me to perform laparoscopic cholecystectomy. Patient will undergo laparoscopic cholecystectomy today.
[2017-12-23] MEDS: ONDANSETRON 4 MG/2 ML VIAL IVP PRN (11:21)
[2017-12-23] MEDS ORDERED: NEOSTIGMINE 1 MG/ML 10 ML VIAL ONE (11:42)
[2017-12-23] MEDS ORDERED: HYDROmorphone (PF) 1 MG/ML ONE (11:42)
[2017-12-23] MEDS ORDERED: KETOROLAC 30 MG/ML 1 ML VIAL ONE (11:42)
[2017-12-23] MEDS ORDERED: MIDAZOLAM 2 MG/2 ML VIAL ONE (11:42)
[2017-12-23] MEDS ORDERED: ROCURONIUM BROMIDE 10 MG/ML 10 ML VIAL IV ONE (11:42)
[2017-12-23] MEDS ORDERED: SUCCINYLCHOLINE CHLORIDE 100 MG/5 ML SYR IV ONE (11:42)
[2017-12-23] MEDS ORDERED: fentaNYL (PF) 50 MCG/ML 2 ML AMP ONE (11:42)
[2017-12-23] MEDS ORDERED: GLYCOPYRROLATE 0.2 MG/ML 2 ML VIAL ONE (11:42)
[2017-12-23] MEDS ORDERED: PROPOFOL 10 MG/ML 50 ML VIAL IV ONE (11:42)
[2017-12-23] MEDS ORDERED: LIDOCAINE 1% INJ 10MG/ML (20 ML MDV) ONE (11:42)
[2017-12-23] MEDS ORDERED: BUPIVACAINE (PF) 0.25% 30 ML VIAL SQ ONE (11:53)
--- NOTE | 2017-12-23 12:17 | P.OP ---
Date of Procedure: 12/23/17 Preoperative Diagnosis: Choledocholithiasis Postoperative Diagnosis: Choledocholithiasis Procedure(s) Performed: Laparoscopic cholecystectomy Anesthesia: EDNA Surgeon: Ariel Vincent Estimated Blood Loss (ml): 5 Pathology: other (Gallbladder) Condition: stable Disposition: PACU Description of Procedure: The patient was placed on the operating table. The patient received a general endotracheal tube anesthesia. The patients abdomen was prepped and draped in the usual sterile fashion. Through an infraumbilical stab incision, the fascia of the anterior abdominal wall was grasped with a pair of Kochers and then the Veress needle was placed in the peritoneal cavity. Position of the Veress needle was confirmed with positive drop test. The abdomen was then insufflated. After adequate insufflation, the 10 mm trocar was placed in the peritoneal cavity. Following this the laparoscope was placed in the peritoneal cavity. The patient was placed in the head-up, right side up position and then a 5 mm trocar was placed in the right lateral and right subcostal position under direct visualization. A 8 mm trocar was placed in the epigastric position. The gallbladder was grasped in the fundus and infundibulum. Traction on the gallbladder was placed in the lateral and the cephalad positions. The triangle of Calot was visualized.. The cystic duct was bluntly dissected until the union of the cystic duct and common bile duct was seen. The cystic duct was then divided and sealed with the Harmonic scissors. A PDS Endoloop was then placed throughout the cystic duct stump. The cystic artery divided and sealed with the Harmonic scissors. The gallbladder was then removed from the liver bed using Harmonic scissors. The gallbladder was then extracted through the epigastric port site. Operative field was checked for any bleeding spots and Harmonic scissors was used to coagulate the liver bed. The abdomen was irrigated. The trocars were removed. The skin was closed using interrupted 3-0 Vicryl suture. Dermabond dressing were applied. The patient tolerated the procedure well.
[2017-12-23] MEDS ORDERED: MORPHINE SULFATE/PF 10MG/10ML VL IVP PRN (12:19)
[2017-12-23] MEDS ORDERED: ONDANSETRON 4 MG/2 ML VIAL IVP ONE (12:57)
[2017-12-23] MEDS ORDERED: SODIUM CHLORIDE 0.9% 1,000 ML IV ONE (13:06)
[2017-12-23 19:43] VITALS: RESP 16
[2017-12-24] MEDS: PIPERACILLIN-TAZOBACTAM 3.375 GM in DEXTROSE/WATER 1 50ML.BAG IVPB SCH (05:34)
[2017-12-24] MEDS: SODIUM CHLORIDE 0.9% 1,000 ML IV SCH ×2 (05:34→09:06)
--- NOTE | 2017-12-24 08:38 | P.DS ---
Providers Date of admission: 12/21/17 15:30 Expected date of discharge: 12/24/17 Attending physician: Lake Lopez Consults: 12/18/17 23:59 Consult Physician Stat Consulting Provider: Jimbo Smith Consult Reason/Comments: Cholelithiasis, Med mgmt Do you want consulting provider notified?: Yes, Notify in am Primary care physician: Juan J Master [facility] Course: 42-year-old male presented on the day of admission to the emergency room with chief complaint of developing intermittent episodes of epigastric and right upper quadrant pain on and off for the last month. Patient was noted to have elevated liver enzymes and elevated total bili. Patient was admitted to the services of the attending. A GI consultation was obtained. Patient did undergo an ERCP as part of the workup for the abdominal pain and the elevated liver enzymes. The ultrasound showed multiple gallstones. No biliary duct dilatation. There was a suspicion for common bile duct stones therefore he was scheduled for the ERCP. The ERCP showed a normal-appearing pancreatic duct. Unsuccessful cannulation of the common bile duct. MRCP was done results were reviewed by Dr. Lopez was a significant improvement in the liver enzymes and patient elected to proceed with a lap cholecystectomy which was done by dr parker who was rounding on behalf of Dr. Mendoza who was out of town. There were no postop events. Patient was felt to be appropriate to be discharged. Impression Present on admission midepigastric radiating to right upper quadrant pain likely due to Choledocholithiasis with acute cholecystitis Ultrasound abdomen show gallstones sludge gallbladder wall thickening Elevated transaminases with elevated total bilirubin Status post attempted ERCP done on December 20 Postop laparoscopic cholecystectomy for cholelithiasis done on December [address] parker rounding on behalf of Dr. lopez The above impression and plan of care have been discussed and directed by signing physician. Jeannette Barragan nurse practitioner acting as scribe for signing physician. Patient Condition at Discharge: Stable Plan - Discharge Summary Discharge Rx Participant: No New Discharge Prescriptions: New Acetaminophen Tab [Tylenol] 650 mg PO Q6HR PRN tab PRN Reason: Mild Pain Or Fever > 100.5 Docusate [Colace] 100 mg PO BID PRN cap PRN Reason: Constipation Ibuprofen [Motrin] 200 mg PO Q4H #30 tab HYDROcodone/APAP 5-325MG [[place] 5-325] 1 tab PO Q4HR PRN #15 tab PRN Reason: Breakthrough Pain Discharge Medication List Acetaminophen Tab [Tylenol] 650 mg PO Q6HR PRN tab 12/24/17 [Rx] Docusate [Colace] 100 mg PO BID PRN cap 12/24/17 [Rx] HYDROcodone/APAP 5-325MG [[place] 5-325] 1 tab PO Q4HR PRN #15 tab 12/24/17 [Rx] Ibuprofen [Motrin] 200 mg PO Q4H #30 tab 12/24/17 [Rx] Follow up Appointment(s)/Referral(s): Juan J Molina MD [Primary Care Provider] - 1-2 days Lake Lopez MD [Medical Doctor] - 1 Week Care Plan Goals (MU): No tub bath for six weeks. Shower daily. No lifting over 10 pounds for the next 6 weeks. Low-fat diet Use [id number] stool softeners for constipation if needed May use ice packs to surgical site. No driving while taking narcotic for pain. Discharge Disposition: HOME SELF-CARE
[2017-12-24 08:42] VITALS: BP 134/86; PULSE 69; TEMP 97.4
[2017-12-24] MEDS: SODIUM BICARBONATE TAB 650 MG TAB PO SCH (08:43)
[2017-12-24] MEDS: HEPARIN SODIUM,PORCINE 5,000 UNIT/ML 1 ML VIAL SQ SCH (08:43)
[2017-12-24] MEDS: FAMOTIDINE 20 MG/2 ML VIAL IV SCH (08:44)
--- NOTE | 2017-12-24 19:40 | PN ---
PROGRESS NOTE DATE OF SERVICE: 12/24/2017 PRESENTING COMPLAINT: Abdominal pain. INTERVAL HISTORY: This is a patient who presented with acute cholelithiasis and cholecystitis and status post cholecystectomy doing much better up and about. Did tolerate some diet. Pain is greatly controlled. No new issues. REVIEW OF SYSTEMS: Done for constitutional, cardiovascular, GI, pulmonary; relevant findings as above. CURRENT MEDICATIONS: Reviewed. EXAMINATION: Afebrile, pulse 69, respirations 16, blood pressure 134/86, pulse ox 98% on room air. General appearance: Sitting up. Comfortable. Eyes: Pupils equal. Conjunctivae normal. HEENT: External appearance of nose and ears normal. Oral cavity normal. Neck JVD not raised. Mass not palpable. Respiratory effort normal. Lungs fair entry. Cardiovascular: First and second sounds normal. No edema. ABDOMEN: Soft, minimal tenderness. Liver and spleen not palpable. Psychiatry: Alert and oriented x3. Mood and affect normal. INVESTIGATIONS: Potassium 4.7, bilirubin 1.3, AST 88, ALT 293. ASSESSMENT: 1. Acute cholecystitis and gallstones status post cholecystectomy. 2. Obstructive hepatitis from gallstones, improved. 3. Right kidney, slightly atrophic kidney. 4. Chronic nicotine dependence, patient is a cigarette smoker. 5. Recreational marijuana use. 6. Hyperbilirubinemia due to obstructive hepatitis. 7. Hypoalbuminemia likely an acute phase reactant. 8. Metabolic acidosis with decreased bicarb much improved. PLAN: Patient doing well. Patient should follow up with his family doctor upon discharge. Followup labs accordingly. Copy to Dr. Molina. Thank you, Dr. Vincent. MMODL / IJN: [id number] /
== END 2017-12-24 12:10 | disposition home or self-care (01) | DRG 418 ==
LOC: EC 20:25 → 3SUR 12-19 00:31 → OBSVTOIN 12-21 15:30
PROVIDERS: ADMIT Surgery; ATTEND Surgery
PROC: 0FJD8ZZ Inspection of Pancreatic Duct, Via Natural or Artificial Opening Endoscopic (ICD-10-PCS; 2017-12-23)
PROC: 0FT44ZZ Resection of Gallbladder, Percutaneous Endoscopic Approach (ICD-10-PCS; principal; 2017-12-23 07:30)
DX: K80.00 Calculus of gallbladder with acute cholecystitis without obstruction (principal); E87.2 Acidosis; K75.9 Inflammatory liver disease, unspecified; E88.09 Other disorders of plasma-protein metabolism, not elsewhere classified; F17.210 Nicotine dependence, cigarettes, uncomplicated; N26.1 Atrophy of kidney (terminal); G89.29 Other chronic pain; Z86.19 Personal history of other infectious and parasitic diseases
CPT/HCPCS: 36415; 43260; 74181; 74328; 76705; 80053; 81001; 82150; 83690; 85025; 88304; 96361; 96374; 96375; 99285

== ENCOUNTER → 2023-10-25 | Outpatient (CLI) | payer BC ==
--- NOTE | 2023-10-25 15:00 | US ---
EXAMINATION TYPE: US groin RT DATE OF EXAM: 10/25/2023 COMPARISON: NONE CLINICAL INDICATION: Male, 48 years old with history of K40.20 BI INGUINAL HERNIA, W/O OBST OR GANGRE NE, N; h/o bilateral inguinal hernia repair 5 or so years ago, no new injury or strain just started t o feel painful on the right, no bulge. TECHNIQUE: Rt inguinal soft tissue FINDINGS: Soft tissue scan of right inguinal canal showed no obvious signs of herniation today with or without valsalva IMPRESSION: No evidence for hernia at this time.
== END | disposition home or self-care (01) ==
LOC: RADUSWWP 14:13
PROVIDERS: ATTEND Pediatrics
DX: K40.20 Bilateral inguinal hernia, without obstruction or gangrene, not specified as recurrent (principal); Z98.890 Other specified postprocedural states